=== PATIENT | female | born 1945 | race Caucasian/White ===

== ENCOUNTER 2024-10-28 07:24 | Emergency (ER) | payer MEDICARE ==
[~2024-10-28] VITALS: Ht 165.1 cm; Wt 84.0 kg
[~2024-10-28 07:24] MED LIST: ATORVASTATIN CA10 MG PO; AZITHROMYCIN250 MG PO; GUAIFENESIN-CO118 M1 PO; LEVOTHYROXINE75 MCG PO; LISINOPRIL-HCT1 EAC2 PO; TOPROL XL50 MG PO
[2024-10-28] MEDS ORDERED: DOXYCYCLINE HY100 MG PO (08:33)
[2024-10-28 08:38] VITALS: PULSE 64; RESP 16; TEMP 97; O2SAT 97
== END 2024-10-28 08:38 | disposition home or self-care (01) ==
LOC: FSED 07:34
DX: L98.8 Other specified disorders of the skin and subcutaneous tissue (principal); I10 Essential (primary) hypertension; E03.9 Hypothyroidism, unspecified; E78.5 Hyperlipidemia, unspecified; M19.09 Primary osteoarthritis, other specified site; Z85.828 Personal history of other malignant neoplasm of skin
CPT/HCPCS: 99283